=== PATIENT | female | born 1960 | race Caucasian/White ===

== ENCOUNTER 2019-02-22 11:45 | Emergency (ER) | payer BC ==
[2019-02-22] MEDS ORDERED: CT SWABBABLE VALVE TRANS SET 1 EA INFUS.SET MC ONE (14:04)
[2019-02-22] MEDS ORDERED: IOHEXOL-300 100 ML VIAL IV ONE (14:04)
[2019-02-22] MEDS ORDERED: KETOROLAC TROMETHAMINE 15 MG/ML VIAL ONE (15:42)
[2019-02-22] MEDS ORDERED: KETOROLAC TROMETHAMINE INJ 30 MG/ML VIAL IV ONE (16:00)
== END 2019-02-22 15:53 | disposition home or self-care (01) ==
DX: R10.12 Left upper quadrant pain (principal); B35.9 Dermatophytosis, unspecified; M54.6 Pain in thoracic spine; N20.0 Calculus of kidney; D18.09 Hemangioma of other sites; D25.9 Leiomyoma of uterus, unspecified; E03.9 Hypothyroidism, unspecified; Z98.890 Other specified postprocedural states; Z88.9 Allergy status to unspecified drugs, medicaments and biological substances
CPT/HCPCS: 36415; 71045; 74177; 80048; 80076; 81001; 85025; 83690; 99284; J1885; Q9967